=== PATIENT | male | born 1945 | race Caucasian/White ===

== ENCOUNTER 2016-12-17 17:56 | Emergency (ER) | payer OTHER ==
[2016-12-17 19:41] LABS: BASOPHIL 0.2 % (0-2); EOSINOPHIL 4.5 % (0-7); HCT 33.4 % (42.0-52.0); HGB 11.4 g/dl (13.2-18.0); LYMPHOCYTE 14.1 % (15-48); MCH 31.1 pg (25.0-31.0); MCHC 34.1 g/dL (32.0-36.0); MCV 91.3 fL (78.0-100.0); MONOCYTE 10.5 % (0-12); NEUTROPHIL 70.7 % (41-80); PLT 128 K/uL (150-400); RBC 3.66 M/uL (4.70-6.00); RDW 18.6 % (11.5-14.0); WBC 4.5 K/uL (4.0-10.5)
[2016-12-17 20:03] LABS: ALBUMIN 2.9 g/dL (3.4-4.8); CREATININE 0.9 mg/dL (0.7-1.2); GLOBULIN (CALCULATION) 3.9 g/dL (2.2-4.2); TOTAL PROTEIN 6.8 g/dL (6.4-8.3)
[2016-12-17 20:25] LABS: BILIRUBIN 1+ mg/dL (NEGATIVE); BLOOD NEGATIVE Ery/uL (NEGATIVE); CLARITY CLEAR (CLEAR); COLOR YELLOW (YELLOW); GLUCOSE (U) NORMAL (NORMAL); KETONE (U) NEGATIVE (NEGATIVE); LEUKOCYTES NEGATIVE Leu/uL (NEGATIVE); NITRITE NEGATIVE (NEGATIVE); PROTEIN NEGATIVE (NEGATIVE)
[2016-12-17 20:29] LABS: BILIRUBIN - DIRECT 5.2 mg/dL (0.0-0.2); BILIRUBIN - TOTAL 7.9 mg/dL (0.1-1.0)
== END 2016-12-17 22:43 | disposition home or self-care (01) ==
LOC: FER 17:56
PROVIDERS: Emergency Medicine Emergency Medical Services
DX: K74.60 Unspecified cirrhosis of liver (principal); L29.8 Other pruritus; I25.2 Old myocardial infarction; I10 Essential (primary) hypertension; E11.9 Type 2 diabetes mellitus without complications; F32.9 Major depressive disorder, single episode, unspecified; J44.9 Chronic obstructive pulmonary disease, unspecified; Z94.4 Liver transplant status; Z95.5 Presence of coronary angioplasty implant and graft
CPT/HCPCS: 36415; 80053; 81003; 82140; 82247; 82248; 83605; 85025; J2930